=== PATIENT | male | born 1990 | race Caucasian/White ===

== ENCOUNTER 2020-01-26 13:10 | Outpatient (REF) | payer OTHER, SELFPAY ==
--- NOTE | 2020-01-26 | MR_ITS ---
EXAMINATION: MR BRAIN WITHOUT CONTRAST CLINICAL INFORMATION: Cavernous hemangioma COMPARISON: MRI dated 01/14/2019 TECHNIQUE: MRI of the brain was obtained using routine sequences without contrast. FINDINGS: There is a stable focus of susceptibility artifact redemonstrated within the left posterior temporal operculum as seen on series 6 and 8, image 12. On the T2-weighted images, the lesion shows a hypointense rim with central T2 mild hyperintensity, and measures approximately 5 mm in total.. No associated edema. No additional areas of abnormal brain parenchymal signal intensity. No diffusion abnormalities within the brain parenchyma. No abnormal extra-axial fluid collection. Ventricular system normal in size and configuration. Posterior fossa structures are normal. The craniocervical junction is normal. Midline structures including the posterior pituitary bright spot are normal. The intracranial vascular flow voids including the major dural venous sinuses are preserved. Mastoid air cells are clear. Mild mucosal thickening throughout the ethmoid air cells. Remainder of the paranasal sinuses are clear. Orbits and globes unremarkable. IMPRESSION: Stable cavernous hemangioma within the left posterior temporal operculum. Otherwise normal MR imaging appearance of the brain
== END 2020-01-26 13:11 | disposition home or self-care (01) ==
LOC: HO.MRI 13:10
PROVIDERS: Visit Provider Psychiatry & Neurology Neurology
DX: D18.01 Hemangioma of skin and subcutaneous tissue (principal)
CPT/HCPCS: 70551